=== PATIENT | female | born 1975 | race Caucasian/White ===

== ENCOUNTER → 2016-10-26 | Outpatient (CLI) | payer BC ==
[~2016-10-26] MED LIST: CEPH500C PO; DIPH1TAB PO; DIPH50TA10 PO; EPP3/2 IM; HYDR-5688 PO
== END | disposition home or self-care (01) ==
LOC: C.PAPS 14:07
PROVIDERS: ATTEND Obstetrics & Gynecology
DX: Z01.419 Encounter for gynecological examination (general) (routine) without abnormal findings (principal)

== ENCOUNTER 2016-11-27 11:12 | Day surgery (SDC) | payer BC, OTHER ==
[2016-11-17 09:33] VITALS: BMI 22.0
[~2016-11-27] VITALS: Ht 175.3 cm; Wt 66.0 kg
--- NOTE | 2016-11-27 09:53 | History & Physical Bridge Note ---
H&P Re-Evaluation Bridge Note: I have examined the patient, reviewed the History & Physical and in the interval since the performance of the History & Physical I have noted the following changes of clinical significance: No changes noted
--- NOTE | 2016-11-27 09:55 | Discharge Instructions ---
Discharge Instructions Admission Reason for Admission: Abnormal Biliary Hida Scan, Biliary Dyskinesia Discharge Discharge Diagnosis / Problem: biliary dyskinesia Discharge Goals Goal(s): Decrease discomfort Activity Recommendations Activity Limitations: as noted below Lifting Limitations: no more than 10 pounds Exercise/Sports Limitations: until after follow-up appointment May Resume Sexual Activity: after follow-up appointment Shower/Bathe: tomorrow . Instructions / Follow-Up Instructions / Follow-Up follow up with Dr. Carrizales in 1-2 weeks. Current Hospital Diet Patient's current hospital diet: Discharge Diet Recommended Diet: Regular Diet Pending Studies Studies pending at discharge: yes List of pending studies: path report Medical Emergencies . Who to Call and When: Medical Emergencies: If at any time you feel your situation is an emergency, please call 911 immediately. . Non-Emergent Contact Non-Emergency issues call your: Primary Care Provider, Surgeon Call Non-Emergent contact if: temperature is above 101, wound has increased drainage, wound has increased redness, wound has increased pain . "Provider Documentation" section prepared by Abram Carrizales. VTE Core Measure Inpt VTE Proph given/why not?: Unfractionated heparin SQ, SCD's
[~2016-11-27 11:12] MED LIST changes: +ACETAMINOPHEN 1000 MG/100 ML IV IV ONE; +CEFAZOLIN 2000 MG/60 ML D5W IV SCH; -CEPH500C PO; -DIPH1TAB PO; -DIPH50TA10 PO; -EPP3/2 IM; +HEPARIN SOD 5000 UNIT/0.5 ML CARP SQ SCH; +LACTATED RINGER'S 1000ML 1,000 ML IV SCH
[2016-11-27 11:30] VITALS: BP 119/66; PULSE 89; TEMP 37.3; O2SAT 100; Ht 175.3 cm; Wt 66.0 kg
[2016-11-27] MEDS ORDERED: FENTANYL CITRATE INJ 50 MCG/1 ML 2 ML VIAL ONE ×3 (11:33→14:12)
[2016-11-27] MEDS ORDERED: ROCURONIUM BROMIDE 10 MG/ML 5 ML VIAL ONE ×2 (11:33→12:30)
[2016-11-27] MEDS ORDERED: PHENYLEPHRINE HCL INJ 10 MG/ML VIAL ONE (11:33)
[2016-11-27] MEDS ORDERED: EpHEDrine SULFATE INJ 50 MG/ML AMP ONE (11:33)
[2016-11-27] MEDS ORDERED: SUCCINYLCHOLINE CHLORIDE 20 MG/ML 10 ML VIAL IV ONE (11:33)
[2016-11-27] MEDS ORDERED: PROPOFOL IV EMULSION 10 MG/ML 20 ML VIAL IV ONE ×3 (11:33→12:30)
[2016-11-27] MEDS ORDERED: NEOSTIGMINE METHYLSULFATE 5 MG/5 ML SYR ONE ×2 (11:33→12:30)
[2016-11-27] MEDS ORDERED: ONDANSETRON INJ 2 MG/ML 2 ML VIAL ONE ×4 (11:33→12:57)
[2016-11-27] MEDS ORDERED: LIDOCAINE HCL 2% 2 ML VIAL (20MG/ML) ONE ×2 (11:33→12:30)
[2016-11-27] MEDS ORDERED: GLYCOPYRROLATE INJ 0.2 MG/ML VIAL ONE ×2 (11:33→12:30)
[2016-11-27] MEDS ORDERED: MIDAZOLAM HCL 1 MG/ML 2ML VIAL ONE ×2 (11:33→12:30)
[2016-11-27] MEDS ORDERED: DEXAMETHASONE SOD INJ 4 MG/ML VIAL ONE ×4 (11:33→12:57)
[2016-11-27] MEDS ORDERED: EPP3/2 IM (11:50)
[2016-11-27] MEDS ORDERED: DIPH50TA10 PO (11:50)
[2016-11-27] MEDS: LACTATED RINGER'S 1000ML 1,000 ML IV SCH ×2 (11:55→14:45)
[2016-11-27] MEDS ORDERED: BUPIVACAINE/EPINEPHRINE 0.5% MPF 1:200,000 30 ML VIAL ONE (12:45)
[2016-11-27] MEDS ORDERED: KETOROLAC TROMETHAMINE 30 MG/ML VIAL ONE (13:08)
[2016-11-27] MEDS ORDERED: PHENYLEPHRINE 100MCG/ML 5ML SYR ONE (13:19)
[2016-11-27] MEDS ORDERED: BUPIVACAINE/EPINEPHRINE 0.5% MPF 1:200,000 30 ML VIAL INJ ONE (13:53)
[2016-11-27] MEDS ORDERED: SODIUM CHLORIDE 0.9% 1000ML 1,000 ML IV SCH (13:56)
[2016-11-27] MEDS ORDERED: KETOROLAC TROMETHAMINE 30 MG/ML VIAL IV. PRN (14:00)
[2016-11-27] MEDS ORDERED: ONDANSETRON INJ 2 MG/ML 2 ML VIAL IV PRN ×2 (14:00→14:15)
[2016-11-27] MEDS ORDERED: HYDROCODONE/ACETAMOPHEN 5/325MG TAB PO PRN ×2 (14:00)
[2016-11-27] MEDS ORDERED: MoRPHine SULFATE 2 MG/ML CARP IV PRN (14:00)
[2016-11-27] MEDS ORDERED: IBUPROFEN 600 MG TAB PO PRN (14:00)
[2016-11-27] MEDS ORDERED: MoRPHine SULFATE 4 MG/ML 1 ML CARP\\VIAL IV PRN (14:00)
--- NOTE | 2016-11-27 14:00 | [facility] Operative Report ---
Operative Report Operative Date Nov 27, 2016. Pre-Operative Diagnosis Abdominal Pain, Abnormal Biliary HIDA Scan Post-Operative Diagnosis biliary dyskinesia Surgeon Dr. Abram Carrizales Reproduction Specialist Surgeon(s) Aston Cha Estimated Blood Loss 15 ml Findings normal anatomy Specimens A: Gallbladder and contents Anesthesia GET Disposition Recovery Room / PACU I attest to the content of the Intraoperative Record and any orders documented therein. Any exceptions are noted below.
[2016-11-27] MEDS ORDERED: ATROPINE SULFATE 0.1 MG/ML 5ML SYR IV PRN (14:15)
[2016-11-27] MEDS ORDERED: FENTANYL CITRATE INJ 50 MCG/1 ML 2 ML VIAL IV PRN (14:15)
[2016-11-27] MEDS ORDERED: NALOXONE HCL 0.4 MG/1 ML VIAL/CARP IV PRN (14:15)
[2016-11-27] MEDS ORDERED: PHENYLEPHRINE 100MCG/ML 5ML SYR IV PRN (14:15)
[2016-11-27] MEDS ORDERED: EpHEDrine SULFATE INJ 50 MG/ML AMP IV PRN (14:15)
[2016-11-27] MEDS ORDERED: MEPERIDINE HCL 25 MG/ML CARP IV PRN (14:15)
[2016-11-27] MEDS ORDERED: HYDROmorphone INJ 2 MG/ML SYR/VIAL IV PRN (14:15)
[2016-11-27] MEDS ORDERED: LABETALOL HCL IV 5 MG/ML 20ML IV PRN (14:15)
[2016-11-27] MEDS ORDERED: FLUMAZENIL 0.1 MG/1 ML 10 ML VIAL IV PRN (14:15)
[2016-11-27] MEDS ORDERED: HYDROmorphone INJ 2 MG/ML SYR/VIAL ONE (14:27)
--- NOTE | 2016-11-27 14:36 | OPERATIVE REPORT ---
DATE OF OPERATION: 11/27/2016 PREOPERATIVE DIAGNOSIS: Biliary dyskinesia. POSTOPERATIVE DIAGNOSIS: Same, adhesions. PROCEDURE: Laparoscopic cholecystectomy, enterolysis. SURGEON: Dr. Carrizales. PORCELAIN SLUSHER: Aston Owusu PA-C. ESTIMATED BLOOD LOSS: Approximately 10 mL. COMPLICATIONS: No immediate. ANESTHESIA: General. The patient tolerated the procedure well. DESCRIPTION OF PROCEDURE: After informed consent was obtained, the patient was taken to the operating suite and placed in supine position. After successful intubation, the abdomen was sterilely prepped and draped in the usual fashion. A periumbilical incision made with an 11 blade scalpel and carried down through the soft tissue using electrocautery. The anterior rectus fascia was opened using electrocautery and two #0 Vicryl stay sutures were placed. Peritoneum was elevated with hemostats and incised under direct vision using a Metzenbaum scissor. A finger sweep was performed to take down any adhesions. A 12 mm Tish trocar was placed. The abdomen was insufflated to 18 mmHg. Laparoscope was inserted and the abdomen examined 360 degrees. A subxiphoid 10 mm port and 2 right upper quadrant 5 mm ports were placed under direct vision. The patient was placed in reverse Trendelenburg position, slightly airplaned to left. When we elevated the right lobe of the liver, there were some adhesions from the stomach to the liver, making an abnormal contour of the stomach. We did sharply lyse these using scissors. Once we took down these adhesions, we were then able to grasp the gallbladder and elevate it superiorly and laterally. Its physical appearance was normal. We elevated it superiorly and laterally. A [place] dissector was used to take down the peritoneum around the base of the gallbladder. We were then able to bluntly dissect and skeletonize the cystic duct. This was clipped 3 times proximally, one time distally and transected with a scissor. In similar fashion, cystic artery was skeletonized, clipped and divided. The gallbladder was removed from the gallbladder fossa using electrocautery. A small hole was made in the gallbladder during this process, releasing a small amount of bile which was immediately suctioned out. Once the gallbladder was removed, we placed it into an EndoCatch bag and removed from the camera port site. Thorough irrigation was performed of the pelvis as well as the right upper quadrant. At the end of the procedure, there was adequate hemostasis and no evidence of a bile leak. We did look around the abdomen briefly and saw no other gross abnormalities. We elevated the left lobe of the liver. There was no evidence of a hiatal hernia, etc. We then removed all the trocars and desufflated the abdomen. The fascia of the camera port was closed using 0 Vicryl in a [id number] fashion. All the wounds were irrigated and closed using 4-0 Monocryl. Marcaine was injected around them for postoperative analgesia and skin glue used as dressings. The patient was awakened, extubated, and transferred to recovery in stable condition. I attest to the content of the Intraoperative Record and any orders documented therein. Any exceptio ns are noted below.
--- NOTE | 2016-11-27 14:45 | Anesthesiology Progress Note ---
Anesthesia Post Op Note Date & Time Nov 27, 2016 at 14:45 Vital Signs Pain Intensity: 2 Vital Signs Past 12 Hours Date Time Temp Pulse Resp B/P Pulse Ox O2 Delivery O2 Flow Rate FiO2 11/27/16 14:40 59 16 106/57 100 Nasal Cannula 2 11/27/16 14:30 59 19 112/60 100 Nasal Cannula 2 11/27/16 14:20 60 17 113/71 100 Nasal Cannula 2 11/27/16 14:10 73 20 118/67 100 Nasal Cannula 2 11/27/16 14:03 36.4 86 17 120/70 99 Nasal Cannula 2 11/27/16 11:30 37.3 89 20 119/66 100 Room Air Notes Mental Status: alert / awake / arousable, participated in evaluation Pt Amnestic to Procedure: Yes Nausea / Vomiting: adequately controlled Pain: adequately controlled Airway Patency, RR, SpO2: stable & adequate BP & HR: stable & adequate Hydration State: stable & adequate Anesthetic Complications: no major complications apparent
[2016-11-27 14:55] VITALS: BP 108/61; PULSE 68; TEMP 37; O2SAT 96
[2016-11-27] MEDS ORDERED: METOCLOPRAMIDE HCL INJ 5 MG/ML 2 ML VIAL ONE (15:09)
[2016-11-27] MEDS ORDERED: NURSING VERBAL MED ORDER ONE (15:15)
[2016-11-27 15:30] VITALS: BP 102/53; PULSE 74; O2SAT 96
[2016-11-27 15:55] VITALS: BP 100/64; PULSE 64; TEMP 36.9; O2SAT 97
[2016-11-27 16:55] VITALS: BP 105/63; PULSE 60; TEMP 36.7; O2SAT 98
[2016-12-01] MEDS ORDERED: EPP3/2 IM (09:33)
== END 2016-11-27 17:07 | disposition home or self-care (01) ==
LOC: C.ACU 11:12
PROVIDERS: ATTEND Surgery
DX: K80.10 Calculus of gallbladder with chronic cholecystitis without obstruction (principal); F41.9 Anxiety disorder, unspecified; Z87.891 Personal history of nicotine dependence

== ENCOUNTER 2016-12-01 20:43 | Emergency (ER) | payer BC ==
[~2016-12-01] VITALS: Ht 172.7 cm; Wt 66.5 kg
[~2016-12-01 20:43] MED LIST changes: -ACETAMINOPHEN 1000 MG/100 ML IV IV ONE; -CEFAZOLIN 2000 MG/60 ML D5W IV SCH; +DIPH50TA10 PO; +EPP3/2 IM; -HEPARIN SOD 5000 UNIT/0.5 ML CARP SQ SCH; -LACTATED RINGER'S 1000ML 1,000 ML IV SCH
[2016-12-01 20:48] VITALS: TEMP 37.4; Ht 172.7 cm; Wt 66.5 kg
[2016-12-01] MEDS ORDERED: DIPH1TAB PO (21:18)
[2016-12-01] MEDS ORDERED: CEPHALEXIN MONOHYDRATE 250 MG CAP PO ONE (21:30)
[2016-12-01] MEDS ORDERED: CEPH500C PO (21:49)
--- NOTE | 2016-12-01 21:52 | EMERGENCY ROOM VISIT NOTE ---
History Report prepared by Sylvie: Tosin Pickens Under the Supervision of: Dr. Elio Saavedra D.O. First contact with patient: 21:17 Chief Complaint: WOUND INFECTION Stated Complaint: GALLBLADDER SURGERY 11-27,PUS FROM INCISION History of Present Illness The patient is a 41 year old female who presents to the Emergency Room with complaints of a worsening surgical wound infection with onset today. She rates her discomfort as a 2/10. The patient notes that she had gallbladder surgery performed 4 days ago. Today, she started to develop pus from the surgical site. The patient notes that she does not have much pain. After calling the surgeon's office and explaining her symptoms, she was advised to come to the ED. She has a follow-up appointment with her surgeon in 11 days. The patient denies a history of MRSA. Source of History: patient Onset: today Position: abdomen Symptom Intensity: 2/10 Quality: other (infection) Timing: worsening Note: She developed pus from the surgical wound. She denies that the area is painful. Review of Systems See HPI for pertinent positives & negatives. A total of 10 systems reviewed and were otherwise negative. Past Medical & Surgical Surgical Problems: (1) H/O wisdom tooth extraction Family History Heart disease Hypertension Social History Smoking Status: Never Smoker Alcohol Use: none Marital Status: Housing Status: lives with family Occupation Status: employed Current/Historical Medications Scheduled Cephalexin Monohydrate (Keflex), 500 MG PO QID Scheduled PRN Diphenhydramine Hcl (Benadryl Allergy), 25 MG PO UD PRN for ALLERGIC REACTION Epinephrine (Epipen), 0.3 MG IM UD PRN for ALLERGIC REACTION Hydrocodone/Acetaminophen 5MG/325MG ([place] 5MG/325MG), 1-2 TABLET PO Q4H PRN for Pain Allergies Coded Allergies: Shellfish (Verified Allergy, Mild, LIP SWELLING, AND THROAT SWELLING, ) Physical Exam Vital Signs Date Time Temp Pulse Resp B/P Pulse Ox O2 Delivery O2 Flow Rate FiO2 12/01/16 20:48 37.4 107 18 122/54 99 Room Air Physical Exam CONSTITUTIONAL/VITAL SIGNS: Reviewed / noted above. GENERAL: Non-toxic in appearance. INTEGUMENTARY: Warm, dry, and Winder. HEAD: Normocephalic. EYES: without scleral icterus or trauma. ENT/OROPHARYNX: clear and moist. LYMPHADENOPATHY/NECK: Is supple without lymphadenopathy or meningismus. RESPIRATORY: Lungs clear and equal. CARDIOVASCULAR: Regular rate and rhythm. GI/ABDOMEN: Soft and nontender. No organomegaly or pulsatile mass. No rebound or guarding. Normal bowel sounds. The laparoscopic wound of the umbilical wound reveals a small amount of erythema and a small amount of pus. A culture has been sent. EXTREMITIES: Warm and well perfused. BACK: No CVA tenderness. NEUROLOGICAL: Intact without focal deficits. PSYCHIATRIC: normal affect. MUSCULOSKELETAL: Normally developed with good muscle tone. Medical Decision & Procedures ED Course 2118: Previous medical records were reviewed. The patient was evaluated in room B9. A complete history and physical examination was performed. 2129: Keflex Cap 500 mg PO 2130: On reevaluation, the patient is doing well. I discussed the results and findings with the patient. She verbalized agreement of the treatment plan. The patient was discharged home. Medical Decision The patient is a 41 year old female who presents to the ED with complaints of a wound infection. The patient had laparoscopic cholecystectomy 4 days ago. She noticed some erythema and pus from the umbilical site. Palpation the region does not reveal any obvious abscess. There is a small amount of erythema and a small amount of pus coming from the wound. Cultures been sent. The patient has been given Keflex. Prescription sent. The patient was felt to be stable for discharge. Follow-up on Sunday with her surgeon. Differential diagnosis: Etiologies such as cellulitis, abscess, MRSA infection, DVT, necrotizing fasciitis, dermatitis, drug eruption, as well as others were entertained.. Impression Primary Impression: Cellulitis Scribe Attestation The scribe's documentation has been prepared under my direction and personally reviewed by me in its entirety. I confirm that the note above accurately reflects all work, treatment, procedures, and medical decision making performed by me. Departure Information Dispostion Home / Self-Care Prescriptions Cephalexin Monohydrate (Keflex) 500 Mg Cap 500 MG PO QID, #28 CAP Prov: Elio Saavedra D.O. 12/01/16 Referrals RV. Cortez MD (PCP) Patient Instructions My [facility]
[2016-12-01 22:07] VITALS: BP 106/65; PULSE 79; O2SAT 97
== END 2016-12-01 22:07 | disposition home or self-care (01) ==
LOC: C.EDB 20:44
DX: T81.4XXA Infection following a procedure, initial encounter (principal); X58.XXXA Exposure to other specified factors, initial encounter; L03.311 Cellulitis of abdominal wall; Z90.49 Acquired absence of other specified parts of digestive tract; Z91.018 Allergy to other foods; Z82.49 Family history of ischemic heart disease and other diseases of the circulatory system

== ENCOUNTER → 2017-10-01 | Outpatient (CLI) | payer BC ==
[~2017-10-01] MED LIST changes: +DIPH1TAB87 PO; -DIPH50TA10 PO; -HYDR-5688 PO
--- NOTE | 2017-10-02 07:47 | MAMMOGRAPHY REPORT ---
BILATERAL DIGITAL SCREENING MAMMOGRAM TOMOSYNTHESIS WITH CAD: 10/01/2017 CLINICAL HISTORY: Routine screening examination. TECHNIQUE: Breast tomosynthesis in addition to standard 2D mammography was performed. Current study was also evaluated with a Computer Aided Detection (CAD) system. COMPARISON: Comparison is made to exam dated: 09/28/2016 mammogram - [facility]. BREAST COMPOSITION: The tissue of both breasts is heterogeneously dense, which may obscure small mas ses. FINDINGS: There is a 9 mm asymmetry in the superior posterior left breast, projecting over the pecto ralis muscle on the MLO view that is equivocal for a mass on the corresponding tomosynthesis images. Additional spot compression tomosynthesis views and possible ultrasound are recommended. There are stable benign-appearing round microcalcifications in the right breast. No other suspicious mass, architectural distortion or cluster of microcalcifications is seen. IMPRESSION: ACR BI-RADS CATEGORY 0: INCOMPLETE EVALUATION: NEED ADDITIONAL IMAGING EVALUATION The asymmetry in the superior, posterior left breast needs additional evaluation. The patient will be called to schedule an appointment. Approximately 10% of breast cancers are not detected with mammography. A negative mammographic report should not delay biopsy if a clinically suggestive mass is present. Joana Villela M.D. ay/:10/01/2017 17:08:09 Machinist Mechanic: Jenniffer VELAZQUEZ)(Omar), [facility] letter sent: Addl Imaging 0 BI-RADS Code: ACR BI-RADS Category 0: Incomplete Evaluation: Need Additional Imaging Evaluation
== END | disposition home or self-care (01) ==
LOC: C.MAMM 07:59
PROVIDERS: ATTEND Internal Medicine
DX: Z12.31 Encounter for screening mammogram for malignant neoplasm of breast (principal); N64.89 Other specified disorders of breast

== ENCOUNTER → 2017-10-09 | Outpatient (CLI) | payer BC ==
--- NOTE | 2017-10-09 13:07 | MAMMOGRAPHY REPORT ---
UNILATERAL LEFT DIGITAL DIAGNOSTIC MAMMOGRAM TOMOSYNTHESIS AND TARGETED LEFT ULTRASOUND: 10/09/2017 CLINICAL HISTORY: 42-year-old woman called back from screening mammography for a 9 mm asymmetry in th e superior posterior left breast projecting over the pectoralis muscle on the MLO view. TECHNIQUE: Spot compression left CC and MLO tomosynthesis images were obtained. COMPARISON: Comparison is made to exams dated: 10/01/2017 mammogram and 09/28/2016 mammogram - [facility]. BREAST COMPOSITION: The tissue of the left breast is heterogeneously dense, which may obscure small masses. FINDINGS: There is effacement of the 9 mm asymmetry in the superior posterior left breast on the spot compression MLO view. No persistent area of architectural distortion or persistent mass is identifi ed. No suspicious macrocalcification. Further evaluation with ultrasound was performed. Targeted ultrasound was performed throughout the superior left breast. Incidental note is made of a morphologically normal intramammary lymph node in the 2:00 left breast, 2 cm from the nipple, measuri ng 7 mm in length with a thin cortex. A benign anechoic simple cyst is seen in the deep 1:00 left br east, 4 cm from the nipple, measuring 6 x 2 x 6 mm. No suspicious solid mass identified. IMPRESSION: ACR BI-RADS CATEGORY 2: BENIGN, TARGETED ULTRASOUND ACR BI-RADS CATEGORY 2: BENIGN Effacement of the left breast asymmetry in the superior posterior left breast with additional supplem ental spot compression tomosynthesis images, and no suspicious sonographic correlate identified. Thi s most likely represented normal overlapping fibroglandular tissue. There is no mammographic or targ eted sonographic evidence of malignancy. Return to annual mammogram screening schedule is recommended . These results and recommendations were discussed with the patient and her at the time of the exam. Approximately 10% of breast cancers are not detected with mammography. A negative mammographic report should not delay biopsy if a clinically suggestive mass is present. Joana Villela M.D. ay/:10/09/2017 08:47:14 Housekeeping Worker: Jenniffer Greene, [facility] letter sent: Normal 1/2 BI-RADS Code: ACR BI-RADS Category 2: Benign Ultrasound BI-RADS: ACR BI-RADS Category 2: Benign
== END | disposition home or self-care (01) ==
LOC: C.MAMM 08:07
PROVIDERS: ATTEND Internal Medicine
DX: N64.89 Other specified disorders of breast (principal)

== ENCOUNTER → 2017-11-02 | Outpatient (CLI) | payer OTHER | END | disposition home or self-care (01) | LOC: C.PAPS 12:28 | PROVIDERS: ATTEND Obstetrics & Gynecology | DX: Z01.411 Encounter for gynecological examination (general) (routine) with abnormal findings (principal); R87.619 Unspecified abnormal cytological findings in specimens from cervix uteri ==

== ENCOUNTER → 2017-12-13 | Outpatient (CLI) | payer OTHER | END | disposition home or self-care (01) | LOC: C.PATHSPEC 14:25 | PROVIDERS: ATTEND Obstetrics & Gynecology | DX: R87.619 Unspecified abnormal cytological findings in specimens from cervix uteri (principal); N72 Inflammatory disease of cervix uteri ==

== ENCOUNTER 2018-03-02 20:05 | Emergency (ER) | payer OTHER ==
[~2018-03-02] VITALS: Ht 172.7 cm; Wt 72.4 kg
[~2018-03-02 20:05] MED LIST changes: -DIPH1TAB87 PO
[2018-03-02 20:07] VITALS: TEMP 37.2; Ht 172.7 cm; Wt 72.4 kg
[2018-03-02 20:27] VITALS: O2SAT 96
[2018-03-02] MEDS ORDERED: IBUP-1050 PO (20:37)
[2018-03-02 20:39] LABS: BASO % 0.2 %; BASO ABS # 0.01 K/uL (0-0.2); EOS % 1.3 %; EOS ABS # 0.08 K/uL (0-0.5); HEMATOCRIT 35.7 % (37-47); HEMOGLOBIN 12.5 g/dL (12.0-16.0); IG# 0.01 K/uL (0.00-0.02); LYMPH ABS # 2.59 K/uL (1.2-3.4); MEAN CELL VOLUME 90.8 fL (80-100); MEAN CORPUSCULAR HEMOGLOBIN 31.8 pg (25-34); MEAN PLATELET VOLUME 9.9 fL (7.4-10.4); MONO % 6.5 %; NEUT % 49.8 %; NEUT ABS # 3.08 K/uL (1.4-6.5); PLATELET COUNT 220 K/uL (130-400); RED CELL DISTRIBUTION WIDTH CV 12.4 % (11.5-14.5); RED CELL DISTRIBUTION WIDTH SD 41.2 fL (36.4-46.3); WHITE BLOOD COUNT 6.17 K/uL (4.8-10.8)
--- NOTE | 2018-03-02 20:39 | DIAGNOSTIC IMAGING REPORT ---
CHEST ONE VIEW PORTABLE HISTORY: 42 years-old Female chest pain acute atypical chest pain COMPARISON: Chest radiograph 01/29/2016 TECHNIQUE: Portable AP view of the chest FINDINGS: Cardiomediastinal and hilar silhouettes are within normal limits. There is no pneumothorax, pleural effusion, focal airspace consolidation or overt pulmonary edema. Bones of the chest appear grossly intact. IMPRESSION: No acute process. The above report was generated using voice recognition software. It may contain grammatical, syntax or spelling errors. Electronically signed by: Agustín Cosby M.D. 03/02/2018 8:37 PM Dictated Date/Time: 03/02/2018 8:36 PM
--- NOTE | 2018-03-02 20:55 | EMERGENCY ROOM VISIT NOTE ---
History First contact with patient: 20:10 Chief Complaint: CARDIAC ASSESSMENT Stated Complaint: CHEST PAIN (NOT HORRIBLE)/ARM PAIN/LIGHTHEADED Nursing Triage Summary: pt states she had went shopping today and had no p[roblem, she was at home and just sitting around and developed left sided cp and pain in left arm but has had up to 3 days ago also. unsure if it is related to stress History of Present Illness The patient is a 42 year old female who presents to the Emergency Room via private vehicle with complaints of "chest pain, arm pain, lightheadedness". The patient states that 3 days ago she began with left anterior chest pain that at times will intermittently radiate into her left shoulder down to her elbow. It is not worse with exertion and occurs intermittently. She feels fatigued. There is also minimal dizziness. She denies any fevers, chills, shortness of breath. She denies chance of . No recent long travel, hormone use, history of clots/PE or leg swelling. Review of Systems A complete 10-point Review of Systems was discussed with the patient, with pertinent positives and negatives listed in the History of Present Illness. All remaining Review of Systems questions can be considered negative unless otherwise specified. Past Medical/Surgical History Surgical Problems: (1) H/O wisdom tooth extraction Family History Heart disease Hypertension Social History Smoking Status: Former Smoker Alcohol Use: none Marital Status: Housing Status: lives with family Occupation Status: employed Current/Historical Medications Scheduled PRN Diphenhydramine Hcl (Benadryl Allergy), 25-50 MG PO UD PRN for ALLERGIC REACTION Epinephrine (Epipen), 0.3 MG IM UD PRN for ALLERGIC REACTION Ibuprofen (Advil), 400 MG PO prn ud PRN for Headache or Pain Physical Exam Vital Signs Date Time Temp Pulse Resp B/P (MAP) Pulse Ox O2 Delivery O2 Flow Rate FiO2 03/02/18 22:41 79 18 112/61 99 03/02/18 21:54 85 03/02/18 21:34 96 14 115/67 100 Room Air 03/02/18 20:27 96 Room Air 03/02/18 20:07 37.2 115 20 119/79 99 Room Air Physical Exam VITAL SIGNS - Vital signs and nursing notes were reviewed. Stable. Tachycardic. GENERAL -42-year-old female appearing her stated age who is in no acute distress. Communicates well with provider and answers questions appropriately. SKIN - Without rashes. HEAD - NC/AT. EYES - PERRL with EOMI bilaterally. Sclera anicteric. Palpebral conjunctiva pink and moist with no injection noted. EARS - No deformities of external structures noted on gross examination bilaterally. NOSE - Midline and without cyanosis. No epistaxis or purulent drainage noted. MOUTH/OROPHARYNX - Without perioral cyanosis. LUNGS - Chest wall symmetric without accessory muscle use, intercostals retractions, or central cyanosis. Normal vesicular breath sounds CTA B/L. No wheezes, rales, or rhonchi appreciated. CARDIAC - RRR with S1/S2. No murmur, rubs, or gallops appreciated. Reproducible left anterior chest pain with palpation of the left anterior chest. EXTREMITIES - No clubbing or peripheral cyanosis. No pretibial edema present. Minimal reproduction of the left anterior/upper arm pain with palpation. NEUROLOGIC - Cranial nerves II through XII grossly intact. Sensory intact to light touch throughout. PSYCH - A&O, and cooperates fully with examiner. Pt is very pleasant and interacts well with examiner. Medical Decision & Procedures ER Provider Diagnostic Interpretation: CHEST ONE VIEW PORTABLE HISTORY: 42 years-old Female chest pain acute atypical chest pain COMPARISON: Chest radiograph 01/29/2016 TECHNIQUE: Portable AP view of the chest FINDINGS: Cardiomediastinal and hilar silhouettes are within normal limits. There is no pneumothorax, pleural effusion, focal airspace consolidation or overt pulmonary edema. Bones of the chest appear grossly intact. IMPRESSION: No acute process. The above report was generated using voice recognition software. It may contain grammatical, syntax or spelling errors. Electronically signed by: Agustín Cosby M.D. 03/02/2018 8:37 PM Dictated Date/Time: 03/02/2018 8:36 PM Laboratory Results 03/02/18 20:30 Red Blood Count 3.93, Mean Corpuscular Volume 90.8, Mean Corpuscular Hemoglobin 31.8, Mean Corpuscular Hemoglobin Concent 35.0, Mean Platelet Volume 9.9, Neutrophils (%) (Auto) 49.8, Lymphocytes (%) (Auto) 42.0, Monocytes (%) (Auto) 6.5, Eosinophils (%) (Auto) 1.3, Basophils (%) (Auto) 0.2, Neutrophils # (Auto) 3.08, Lymphocytes # (Auto) 2.59, Monocytes # (Auto) 0.40, Eosinophils # (Auto) 0.08, Basophils # (Auto) 0.01 03/02/18 20:30 Test 03/02/18 00:00 03/02/18 20:30 Urine Color YELLOW Urine Appearance CLEAR (CLEAR) Urine pH 7.0 (4.5-7.5) Urine Specific [place] 1.009 (1.000-1.030) Urine Protein NEG (NEG) Urine Glucose (UA) NEG (NEG) Urine Ketones NEG (NEG) Urine Occult Blood NEG (NEG) Urine Nitrite NEG (NEG) Urine Bilirubin NEG (NEG) Urine Urobilinogen NEG (NEG) Urine Leukocyte Esterase NEG (NEG) Urine Test NEG (NEG) White Blood Count 6.17 K/uL (4.8-10.8) Red Blood Count 3.93 M/uL (4.2-5.4) Hemoglobin 12.5 g/dL (12.0-16.0) Hematocrit 35.7 % (37-47) Mean Corpuscular Volume 90.8 fL (80-100) Mean Corpuscular Hemoglobin 31.8 pg (25-34) Mean Corpuscular Hemoglobin Concent 35.0 g/dl (32-36) Platelet Count 220 K/uL (130-400) Mean Platelet Volume 9.9 fL (7.4-10.4) Neutrophils (%) (Auto) 49.8 % Lymphocytes (%) (Auto) 42.0 % Monocytes (%) (Auto) 6.5 % Eosinophils (%) (Auto) 1.3 % Basophils (%) (Auto) 0.2 % Neutrophils # (Auto) 3.08 K/uL (1.4-6.5) Lymphocytes # (Auto) 2.59 K/uL (1.2-3.4) Monocytes # (Auto) 0.40 K/uL (0.11-0.59) Eosinophils # (Auto) 0.08 K/uL (0-0.5) Basophils # (Auto) 0.01 K/uL (0-0.2) RDW Standard Deviation 41.2 fL (36.4-46.3) RDW Coefficient of Variation 12.4 % (11.5-14.5) Immature Granulocyte % (Auto) 0.2 % Immature Granulocyte # (Auto) 0.01 K/uL (0.00-0.02) Prothrombin Time 9.8 SECONDS (9.0-12.0) Prothromb Time International Ratio 0.9 (0.9-1.1) Activated Partial Thromboplast Time 24.5 SECONDS (21.0-31.0) Partial Thromboplastin Ratio 0.9 D-Dimer < 190 ug/L FEU (0-500) Anion Gap 8.0 mmol/L (3-11) Est Creatinine Clear Calc Drug Dose 92.2 ml/min Estimated GFR () 104.6 Estimated GFR (Non- 90.2 BUN/Creatinine Ratio 26.2 (10-20) Calcium Level 8.5 mg/dl (8.5-10.1) Magnesium Level 1.9 mg/dl (1.8-2.4) Total Bilirubin 0.4 mg/dl (0.2-1) Aspartate Amino Transf (AST/SGOT) 18 U/L (15-37) Alanine Aminotransferase (ALT/SGPT) 25 U/L (12-78) Alkaline Phosphatase 69 U/L (45-117) Total Creatine Kinase 142 U/L (26-192) Creatine Kinase MB 1.0 ng/ml (0.5-3.6) Creatine Kinase MB Ratio 0.7 (0-3.0) Troponin I < 0.015 ng/ml (0-0.045) Total Protein 6.8 gm/dl (6.4-8.2) Albumin 3.9 gm/dl (3.4-5.0) Globulin 2.9 gm/dl (2.5-4.0) Albumin/Globulin Ratio 1.4 (0.9-2) Thyroid Stimulating Hormone (TSH) 2.890 uIu/ml (0.300-4.500) Medications Administered Medications (Trade) Dose Ordered Sig/[place] Route Start Time Stop Time Status Last Admin Dose Admin Sodium Chloride 1,000 ml @ 999 mls/hr Q1H1M STAT IV 03/02/18 21:07 03/02/18 22:07 DC 03/02/18 21:16 999 MLS/HR Potassium Chloride (Klor-Con M10) 40 meq NOW STAT PO 03/02/18 21:19 03/02/18 21:20 DC 03/02/18 21:30 40 MEQ Medical Decision Patient was seen and evaluated as above in room C4. She presents to us today with chest pain. It has been going on intermittently for 3 days. She is nontoxic on exam. Review was performed of nursing notes and vital signs. After obtaining a thorough history and physical examination the above work up was performed. Bedside EKG reveals normal sinus rhythm, rate of 99 bpm. No ectopy or ischemic change. CBC reveals no concerning leukocytosis. There is slight anemia but hemoglobin okay at 12.5. She was given fluids here for dehydration. The pain is reproducible in the left anterior chest. I favor this likely to be musculoskeletal. She has done recent gardening given the nice weather. I do recommend follow-up in the outpatient setting for the hypokalemia, and her chest pain. She was given contact information for the bindery manager and her family doctor which she is to call first thing Sunday. She is to return with any exertional symptoms or worsening. In the absence of enzyme abnormality, EKG abnormality, or other risk factors I believe she is stable for outpatient management. The patient was educated upon management, had questions answered prior to discharge, and was discharged home in good condition. Case was discussed with the attending physician. In the evaluation and treatment of this patient the following differential diagnoses were entertained: TX, PE, pericarditis, costochondritis, among others. Impression Primary Impression: Chest pain Additional Impression: Hypokalemia Departure Information Dispostion Home / Self-Care Condition GOOD Referrals RV. Cortez MD (PCP) Elio Patel MD Kocher, Christopher W., MD Patient Instructions Hypokalemia [place], [facility] Additional Instructions You have been treated in the Emergency Department your Chest pain. Laboratory results and imaging studies have ruled out any emergent causes for your chest pain which would warrant admission or surgery. Please no strenuous activity until you see your family doctor/follow-up with cardiology. I have listed the number for the on-call bindery manager which I recommend calling to schedule follow-up Sunday. For pain control, you can use the following [id number] medicines: - Regular strength (325mg/tab) Tylenol (acetaminophen) 2 tabs every 4-6 hours as needed. Do not exceed 12 tablets in a 24 hour period. Avoid taking more than 3 grams (3000 mg) of Tylenol per day. This includes any other sources of acetaminophen you may take on a regular basis. - Regular strength (200 mg/tab) Advil (ibuprofen) 1-2 tabs every 4-6 hours as needed. Do not exceed a dose of 3200 mg per day. Drink plenty of water and stay well hydrated. Please refer to the attached handout regarding foods high in potassium. Your potassium was found to be low here. I do recommend this is repeated with your family doctor. As with any trip to the Emergency Department, you should follow-up with your Primary Care Provider from today's visit. Return to the emergency department if your symptoms persist despite treatment plan outlined above or if the following symptoms occur: fevers, chills, worsening nausea/vomiting, increased chest pain, exertional chest pain, coughing blood, blood in your stool or urine or any new/ concerning symptoms. Problem Qualifiers
[2018-03-02 20:58] LABS: ALBUMIN 3.9 gm/dl (3.4-5.0); ALT/SGPT 25 U/L (12-78); AST/SGOT 18 U/L (15-37); BLOOD UREA NITROGEN 21 mg/dl (7-18); CALCIUM 8.5 mg/dl (8.5-10.1); CARBON DIOXIDE 25 mmol/L (21-32); CREATININE 0.81 mg/dl (0.60-1.20); GLUCOSE 115 mg/dl (70-99); POTASSIUM 3.3 mmol/L (3.5-5.1); SODIUM 140 mmol/L (136-145)
[2018-03-02] MEDS ORDERED: SODIUM CHLORIDE 0.9% 1000ML 1,000 ML IV STA (21:07)
[2018-03-02 21:09] LABS: ALKALINE PHOSPHATASE 69 U/L (45-117); TOTAL PROTEIN 6.8 gm/dl (6.4-8.2)
[2018-03-02 21:12] LABS: INR 0.9 (0.9-1.1); PTT PATIENT 24.5 SECONDS (21.0-31.0)
[2018-03-02] MEDS ORDERED: DIPH1TAB87 PO (21:18)
[2018-03-02] MEDS ORDERED: POTASSIUM CHLORIDE 10 MEQ TABCR PO STA (21:19)
[2018-03-02 22:41] VITALS: BP 112/61; PULSE 79; O2SAT 99
== END 2018-03-02 22:42 | disposition home or self-care (01) ==
LOC: C.EDB 20:07 → C.EDC 22:42
DX: R07.9 Chest pain, unspecified (principal); E87.6 Hypokalemia; E86.0 Dehydration; Z82.49 Family history of ischemic heart disease and other diseases of the circulatory system

== ENCOUNTER → 2018-06-12 | Outpatient (CLI) | payer OTHER ==
[~2018-06-12] MED LIST changes: +DIPH1TAB87 PO; +IBUP-1050 PO
== END | disposition home or self-care (01) ==
LOC: C.PAPS 13:46
PROVIDERS: ATTEND Obstetrics & Gynecology
DX: R87.619 Unspecified abnormal cytological findings in specimens from cervix uteri (principal)